=== PATIENT | male | born 1990 | race American Indian/Alaskan Native ===

== ENCOUNTER 2017-03-24 19:31 | Emergency (ER) | payer SELFPAY ==
[2017-03-24 19:47] VITALS: BMI 17.4
[2017-03-24 19:48] VITALS: TEMP 98.1
[2017-03-24] MEDS ORDERED: Oxymetazoline 0.05% Nasal Spray (30 ml) NS STA (20:00)
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
[2017-03-24] MEDS ORDERED: Oxycodone/Acetaminophen 5/325 mg Tab PO STA (21:36)
[2017-03-24] MEDS ORDERED: Amoxicillin-Clav 875-125 mg Tab PO STA (21:41)
[2017-03-24 22:44] VITALS: BP 130/84; PULSE 82; RESP 14; O2SAT 95
== END 2017-03-24 22:43 | disposition home or self-care (01) ==
LOC: ED 19:31
DX: S02.2XXA Fracture of nasal bones, initial encounter for closed fracture (principal); Y04.2XXA Assault by strike against or bumped into by another person, initial encounter; Y93.89 Activity, other specified; Y92.89 Other specified places as the place of occurrence of the external cause; R04.0 Epistaxis